=== PATIENT | female | born 1975 | race Caucasian/White ===

== ENCOUNTER 2019-04-14 11:32 | Emergency (ER) | payer MEDICARE, OTHER ==
[2019-04-14 13:48] VITALS: BP 97/63
--- NOTE | 2019-04-14 14:21 | UC ---
Lower Extremity/Ankle HPI - HPI Summary HPI Summary: right ankle pain x 1 week pain is sharp , medial right ankle, pain is 6 out 10 , worse with walking, better with rest and ice started doing high impact work out for the past week no known injury - History of Current Complaint Chief Complaint: UCLowerExtremity Stated Complaint: R ANKLE INJ Time Seen by Provider: 04/14/19 13:53 Hx Obtained From: Patient Hx Last Menstrual Period: "two months ago" ?: No Onset/Duration: Gradual Onset, Lasting Days - 7, Still Present Severity Initially: Moderate Severity Currently: Moderate Pain Intensity: 7 Aggravating Factor(s): Standing, Ambulation Alleviating Factor(s): Rest, Elevation, Ice Able to Bear Weight: Yes - Allergies/Home Medications Allergies/Adverse Reactions: Allergies Allergy/AdvReac Type Severity Reaction Status Date / Time No Known Allergies Allergy Verified 04/14/19 13:45 Home Medications: Home Medications Levothyroxine TAB* [Synthroid TAB*] 125 mcg PO DAILY 04/14/19 [History Confirmed 04/14/19] Naproxen Sodium [Aleve] 220 mg PO ONCE 04/14/19 [History Confirmed 04/14/19] PMH/Surg Hx/FS Hx/Imm Hx Endocrine History: Hypothyroidism - Surgical History Surgical History: None - Family History Known Family History: Negative: Diabetes - Social History Alcohol Use: None Substance Use Type: None Smoking Status (MU): Former Smoker Length of Time of Smoking/Using Tobacco: "I don't remember." PPD x 10 Years When Did the Patient Quit Smoking/Using Tobacco: 1999 Review of Systems All Other Systems Reviewed And Are Negative: Yes Constitutional: Positive: Negative Skin: Positive: Negative Eyes: Positive: Negative ENT: Positive: Negative Respiratory: Positive: Negative Cardiovascular: Positive: Negative Is Patient Immunocompromised?: No Physical Exam Triage Information Reviewed: Yes Appearance: Well-Appearing, No Pain Distress, Well-Nourished Vital Signs: Initial Vital Signs Temp 98.8 F 04/14/19 13:43 Pulse 72 04/14/19 13:43 Resp 14 04/14/19 13:43 BP 97/63 04/14/19 13:43 Pulse Ox 99 04/14/19 13:43 Eye Exam: Normal Eyes: Positive: Conjunctiva Clear ENT: Positive: Normal ENT inspection, Hearing grossly normal, Pharynx normal Neck: Positive: Supple, Nontender, No Lymphadenopathy Respiratory: Positive: Chest non-tender, Lungs clear, Normal breath sounds Cardiovascular: Positive: RRR, No Murmur, Pulses Normal Abdominal Exam: Normal Musculoskeletal: Positive: Other: - right ankle : no swelling, no erythema, tenderness media ankle, good ROM , normal strength Diagnostics - Radiology No standard instances Radiology Interpretation Completed By: Radiologist Summary of Radiographic Findings: right ankle xrary : IMPRESSION: NO ACUTE OSSEOUS INJURY. IF SYMPTOMS PERSIST, RECOMMEND REPEAT IMAGING. Lower Extremity Course/Dx - Differential Dx/Diagnosis Provider Diagnosis: Right ankle pain Discharge ED - Sign-Out/Discharge Documenting (check all that apply): Patient Departure All imaging exams completed and their final reports reviewed: Yes - Discharge Plan Condition: Stable Disposition: HOME Referrals: Felipe Ybarra MD [Primary Care Provider] - - Billing Disposition and Condition Condition: STABLE Disposition: Home
== END 2019-04-14 14:39 | disposition home or self-care (01) ==
LOC: UCCORT 11:32 → MERGE 11:32 → UCCORT 14:39
DX: M25.571 Pain in right ankle and joints of right foot (principal); E03.9 Hypothyroidism, unspecified; Z79.899 Other long term (current) drug therapy; Z87.891 Personal history of nicotine dependence
CPT/HCPCS: 99211; G0463